=== PATIENT | male | born 1995 | race Caucasian/White ===

== ENCOUNTER 2022-05-22 12:34 | Emergency (ER) | payer MEDICAID ==
[~2022-05-22] VITALS: Ht 180.3 cm; Wt 95.5 kg
[2022-05-22 12:51] VITALS: BP 150/89
[2022-05-22] MEDS ORDERED: ibuprofen tablet 400 MG TABLET PO ONE (14:10)
[2022-05-22] MEDS ORDERED: TRAM50TA2 PO (15:12)
== END 2022-05-22 15:17 | disposition home or self-care (01) ==
LOC: ER 12:34
DX: S62.616A Displaced fracture of proximal phalanx of right little finger, initial encounter for closed fracture (principal); W19.XXXA Unspecified fall, initial encounter; Y93.89 Activity, other specified; Y92.89 Other specified places as the place of occurrence of the external cause; Y99.8 Other external cause status
CPT/HCPCS: 29125; 73130; 99283; A6446; A6449

== ENCOUNTER 2024-07-21 09:05 | Emergency (ER) | payer MEDICAID, OTHER ==
[~2024-07-21] VITALS: Ht 182.9 cm; Wt 73.9 kg
[2024-07-21 09:13] VITALS: BP 129/82; PULSE 110; RESP 16; TEMP 97.9; O2SAT 100
== END 2024-07-21 10:06 | disposition home or self-care (01) ==
LOC: ER 09:05
DX: M25.511 Pain in right shoulder (principal)
CPT/HCPCS: 73030; 99283